=== PATIENT | female | born 1955 | race Asian ===

== ENCOUNTER → 2024-11-09 | Outpatient (CLI) | payer MEDICARE, SELFPAY ==
[2024-11-09 13:18] LABS: Glucose Estimated Average 137 mg/dL (80-131); Hemoglobin A1C 6.4 % Hgb (4.8-6.0)
[2024-11-09 13:35] LABS: Alanine Aminotransferase 11 U/L (10-49); Albumin, Serum 4.4 gm/dL (3.4-4.8); Albumin/Globulin Ratio 1.5 (1.2-2.2); Alkaline Phosphatase 66 U/L (46-116); Anion Gap 9 (7-16); Aspartate Amino Transferase 20 U/L (0-34); BUN/Creatinine Ratio 9 Ratio (12-20); Bilirubin,Total 0.3 mg/dL (0.3-1.2); Blood Urea Nitrogen 7 mg/dL (9-23); Calcium 9.2 mg/dL (8.3-10.6); Calcium (Corrected) 9.2 mg/dL (8.5-10.1); Carbon Dioxide 23.8 mMol/L (20.0-31.0); Cardiac Risk Estimate 2.2 RATIO (3.7-5.6); Chloride 109 mMol/L (98-107); Cholesterol 136 mg/dL (132-200); Creatinine (Component) 0.8 mg/dL (0.6-1.3); Glucose 81 mg/dL (74-106); HDL Cholesterol 62 mg/dL (40-60); LDL Cholesterol,Calculated 44 mg/dL (0-130); Osmolality,Calculated 280 (275-295); Potassium 4.1 mMol/L (3.4-5.1); Sodium 142 mMol/L (136-145); Total Protein 7.4 gm/dL (5.7-8.2); Triglycerides 148 mg/dL (30-150); eGFR > 60 See Note
[2024-11-09 13:36] LABS: Creatinine MALB Rnd Ur 21 mg/dL (30-125); Microalbumin Creat Ratio 138 mg/gCrea (<30); Microalbumin, Random Urine 29 mg/L (0-300)
== END | disposition home or self-care (01) ==
LOC: COPL 11:47
PROVIDERS: PCP Specialist; Referring Provider Specialist; Visit Provider Specialist
DX: E11.65 Type 2 diabetes mellitus with hyperglycemia (principal)
CPT/HCPCS: 36415; 80053; 80061; 82043; 82570; 83036

== ENCOUNTER → 2025-02-08 | Outpatient (CLI) | payer MEDICARE, SELFPAY ==
[2025-02-08 10:45] LABS: Glucose Estimated Average 134 mg/dL (80-131); Hemoglobin A1C 6.3 % Hgb (4.8-6.0)
[2025-02-08 10:52] LABS: Alanine Aminotransferase 11 U/L (10-49); Albumin, Serum 4.5 gm/dL (3.4-4.8); Albumin/Globulin Ratio 1.4 (1.2-2.2); Alkaline Phosphatase 67 U/L (46-116); Anion Gap 12 (7-16); Aspartate Amino Transferase 20 U/L (0-34); BUN/Creatinine Ratio 13 Ratio (12-20); Bilirubin,Total 0.3 mg/dL (0.3-1.2); Blood Urea Nitrogen 14 mg/dL (9-23); Calcium 9.6 mg/dL (8.3-10.6); Calcium (Corrected) 9.6 mg/dL (8.5-10.1); Carbon Dioxide 24.8 mMol/L (20.0-31.0); Cardiac Risk Estimate 2.4 RATIO (3.7-5.6); Chloride 105 mMol/L (98-107); Cholesterol 153 mg/dL (132-200); Creatinine (Component) 1.1 mg/dL (0.6-1.3); Globulin 3.2 gm/dL (2.3-3.5); Glucose 101 mg/dL (74-106); HDL Cholesterol 63 mg/dL (40-60); LDL Cholesterol,Calculated 54 mg/dL (0-130); Osmolality,Calculated 283 (275-295); Potassium 4.3 mMol/L (3.4-5.1); Sodium 142 mMol/L (136-145); Thyroid Stimulating Hormone 3.64 uIU/mL (0.55-4.78); Total Protein 7.7 gm/dL (5.7-8.2); Triglycerides 181 mg/dL (30-150); eGFR 54 See Note
[2025-02-08 11:09] LABS: Creatinine MALB Rnd Ur 19 mg/dL (30-125); Microalbumin, Random Urine < 3 mg/L (0-300)
== END | disposition home or self-care (01) ==
LOC: COPL 09:36
PROVIDERS: PCP Specialist; Referring Provider Specialist; Visit Provider Specialist
DX: E11.69 Type 2 diabetes mellitus with other specified complication (principal); R63.5 Abnormal weight gain
CPT/HCPCS: 36415; 80053; 80061; 82043; 82570; 83036; 84443

== ENCOUNTER → 2025-04-27 | Outpatient (CLI) | payer MEDICARE, SELFPAY ==
[2025-04-27 12:27] LABS: Glucose Estimated Average 134 mg/dL (80-131); Hemoglobin A1C 6.3 % Hgb (4.8-6.0)
[2025-04-27 12:30] LABS: Creatinine MALB Rnd Ur < 13 mg/dL (30-125); Microalbumin, Random Urine < 3 mg/L (0-300)
[2025-04-27 12:33] LABS: Alanine Aminotransferase 13 U/L (10-49); Albumin, Serum 4.5 gm/dL (3.4-4.8); Albumin/Globulin Ratio 1.6 (1.2-2.2); Alkaline Phosphatase 56 U/L (46-116); Anion Gap 12 (7-16); Aspartate Amino Transferase 20 U/L (0-34); BUN/Creatinine Ratio 8 Ratio (12-20); Bilirubin,Total 0.4 mg/dL (0.3-1.2); Blood Urea Nitrogen 7 mg/dL (9-23); Calcium 9.3 mg/dL (8.3-10.6); Calcium (Corrected) 9.3 mg/dL (8.5-10.1); Carbon Dioxide 21.7 mMol/L (20.0-31.0); Cardiac Risk Estimate 2.4 RATIO (3.7-5.6); Chloride 106 mMol/L (98-107); Cholesterol 139 mg/dL (132-200); Creatinine (Component) 0.9 mg/dL (0.6-1.3); Globulin 2.9 gm/dL (2.3-3.5); Glucose 106 mg/dL (74-106); HDL Cholesterol 58 mg/dL (40-60); LDL Cholesterol,Calculated 49 mg/dL (0-130); Osmolality,Calculated 277 (275-295); Potassium 4.1 mMol/L (3.4-5.1); Sodium 140 mMol/L (136-145); Total Protein 7.4 gm/dL (5.7-8.2); Triglycerides 162 mg/dL (30-150); eGFR > 60 See Note
== END | disposition home or self-care (01) ==
LOC: COPL 11:06
PROVIDERS: PCP Specialist; Referring Provider Specialist; Visit Provider Specialist
DX: E11.69 Type 2 diabetes mellitus with other specified complication (principal)
CPT/HCPCS: 36415; 80053; 80061; 82043; 82570; 83036

== ENCOUNTER → 2025-05-31 | Outpatient (CLI) | payer MEDICARE, SELFPAY ==
--- NOTE | 2025-05-31 11:00 | XR_ITS ---
Examination: Screening digital mammography, bilateral Computer aided detection 3-D breast Tomosynthesis, bilateral Date and time of exam: 05/29/2025, 10:30 a.m. Comparisons: 05/26/2024 Indications: Screening Technique: Nonmagnified MLO, CC views of the breasts to been obtained, reconstructed from 3-D Tomosynthesis images. R2 computer aided detection program utilized for evaluation of suspicious masses and/or abnormal calcifications. 3-D Tomosynthesis images obtained. Technologist: Findings: There are scattered areas of fibroglandular density. No evidence of abnormal masses or suspicious calcifications. Impression: BI-RADS category 1: Negative findings (within normal) Recommend 1 year follow-up mammogram
== END | disposition home or self-care (01) ==
LOC: CDIM 10:30
PROVIDERS: Referring Provider Specialist; Visit Provider Specialist
DX: Z12.31 Encounter for screening mammogram for malignant neoplasm of breast (principal); R92.313 Mammographic fatty tissue density, bilateral breasts
CPT/HCPCS: 77063; 77067